=== PATIENT | male | born 1950 | race Caucasian/White ===

== ENCOUNTER 2019-05-25 08:16 | Emergency (ER) | payer MEDICARE ==
[~2019-05-25] VITALS: Ht 167.6 cm; Wt 84.5 kg
[2019-05-25] MEDS ORDERED: buprenorphine/naloxone 8MG-2MG SUBlingual film SL SCH (09:20)
[2019-05-25] MEDS ORDERED: ondansetron 4mg rapidly disintigrating tab PO ONE (10:45)
[2019-05-25] MEDS ORDERED: INDOMETHACIN 75 MG PO SCH (11:15)
[2019-05-25] MEDS ORDERED: indomethacin 25mg capsule PO SCH (11:24)
[2019-05-25] MEDS ORDERED: INDO50CA96 PO (11:31)
[2019-05-25 11:43] VITALS: BP 153/72
== END 2019-05-25 11:55 | disposition home or self-care (01) ==
LOC: ER 08:17
DX: M54.5 Low back pain (principal); M54.6 Pain in thoracic spine; R19.7 Diarrhea, unspecified; G89.29 Other chronic pain; Z79.899 Other long term (current) drug therapy
CPT/HCPCS: 99284